=== PATIENT | female | born 1970 | race Hispanic/Latino ===

== ENCOUNTER 2024-12-22 21:14 | Emergency (ER) | payer OTHER ==
[~2024-12-22] VITALS: Ht 162.6 cm; Wt 79.8 kg
[2024-12-22 21:35] VITALS: PULSE 87; RESP 18; TEMP 97.5
[2024-12-22] MEDS: IBUPROFEN 600 MG TAB PO STA (23:58)
[2024-12-23] MEDS ORDERED: NAPROSYN500 MG PO (01:58)
[2024-12-23] MEDS ORDERED: ULTRAM 50MG50 MG PO (01:59)
[2024-12-23] MEDS: TRAMADOL HCL 50 MG TAB PO ONE (02:09)
[2024-12-23 02:21] VITALS: BP 160/72; PULSE 82; RESP 18; TEMP 98; O2SAT 98
== END 2024-12-23 02:21 | disposition home or self-care (01) ==
LOC: FSED 21:57
DX: S52.122A Displaced fracture of head of left radius, initial encounter for closed fracture (principal); W18.39XA Other fall on same level, initial encounter; Y93.01 Activity, walking, marching and hiking; Y92.89 Other specified places as the place of occurrence of the external cause
CPT/HCPCS: 99284